=== PATIENT | female | born 2000 | race African-American/Black ===

== ENCOUNTER 2022-07-25 09:18 | Inpatient (IN) | payer OTHER ==
[2022-07-25] MEDS ORDERED: Penicillin G Potassium 5 MILL.UNITS VIAL ONE (09:37)
[2022-07-25] MEDS ORDERED: Tranexamic Acid 1,000 MG/10 ML VIAL IVP PRN (09:46)
[2022-07-25] MEDS ORDERED: Carboprost 250 MCG/ML AMP IM PRN (09:46)
[2022-07-25] MEDS ORDERED: Ondansetron PF 4 MG/2 ML Vial IVP PRN ×2 (09:46→16:06)
[2022-07-25] MEDS ORDERED: Lidocaine 1% (PF) 30 ML VIAL SC PRN (09:46)
[2022-07-25] MEDS ORDERED: hydrALAZINE 20 MG/ML VIAL SLOW IVP PRN ×2 (09:46→16:06)
[2022-07-25] MEDS ORDERED: Butorphanol Tartrate 1 MG/ML VIAL SLOW IVP PRN (09:46)
[2022-07-25] MEDS ORDERED: Promethazine HCl 25 MG/ML VIAL IM PRN (09:46)
[2022-07-25] MEDS ORDERED: Misoprostol 200 MCG TAB PR PRN (09:46)
[2022-07-25] MEDS ORDERED: Ibuprofen 800 MG TAB PO PRN (09:46)
[2022-07-25] MEDS ORDERED: Methylergonovine 0.2 MG/ML VIAL IM PRN (09:46)
[2022-07-25] MEDS ORDERED: Penicillin G 2.5 MILL.units 2.5 MILL.UNITS in Premix Bag 1 BAG IVPB SCH (10:00)
[2022-07-25] MEDS ORDERED: Lactated Ringer's 1,000 ML IV SCH (10:00)
[2022-07-25] MEDS ORDERED: NS w/ Oxytocin 30 units 500 ML IV SCH ×2 (10:00)
[2022-07-25] MEDS ORDERED: Penicillin G Potassium 5 MILL.UNITS in Sodium Chloride 0.9% 100 ML IVPB SCH (10:00)
[2022-07-25 10:20] LABS: Mean Corpuscular Hemoglobin 31.2 pg (27.0-33.0); Mean Corpuscular Volume 91.6 fl (81.6-98.3); Mean Platelet Volume 10.8 fl (7.4-10.4); Platelet Count 232 10x3/uL (150-450); RBC Distribution Width 13.3 % (11.5-14.5); Red Blood Cell (RBC) Count 4.17 10x6/uL (3.90-5.03); White Blood Cell (WBC) Count 8.9 10x3/uL (3.5-10.5)
[2022-07-25 11:12] LABS: Syphilis Antibody Nonreactive (Nonreactive); Syphilis Antibody Index 0.07 S/CO (<1.00 Non-Reactive)
[2022-07-25 11:13] LABS: HBSAg Index 0.14 S/CO (0-0.99); Hep B Surf Ag - L&D Non-Reactive S/CO (NonReactive)
[2022-07-25 12:24] VITALS: BMI 24.5
[2022-07-25] MEDS: NS w/ Oxytocin 30 units 500 ML IV SCH ×2 (14:55→16:20)
[2022-07-25] MEDS ORDERED: Milk Of Magnesia 30 ML UDCUP PO PRN (16:06)
[2022-07-25] MEDS ORDERED: Benzocaine-Menthol 82.5 ML CAN TOP PRN (16:06)
[2022-07-25] MEDS ORDERED: Bisacodyl 10 MG SUPP PR PRN (16:06)
[2022-07-25] MEDS ORDERED: diphenhydrAMINE 25 MG CAP PO PRN (16:06)
[2022-07-25] MEDS ORDERED: Boostrix 0.5 ML (Tdap) VIAL (>/=7 yrs of age) IM ONE (16:06)
[2022-07-25] MEDS: HYDROcodone/Acetaminophen 5/325 mg Tablet PO PRN (16:34)
[2022-07-25] MEDS: Ferrous Sulfate 325 MG TAB PO SCH (19:32)
[2022-07-26] MEDS: Ibuprofen 800 MG TAB PO SCH ×4 (05:08→21:27)
[2022-07-26] MEDS: Docusate 100 MG CAP PO SCH ×3 (05:34→21:28)
[2022-07-26] MEDS: Ferrous Sulfate 325 MG TAB PO SCH ×2 (07:47→17:09)
[2022-07-26] MEDS: Prenatal Vitamin 1 TAB PO SCH (09:31)
[2022-07-26] MEDS: HYDROcodone/Acetaminophen 5/325 mg Tablet PO PRN ×2 (12:44→21:27)
[2022-07-27] MEDS: Ibuprofen 800 MG TAB PO SCH ×2 (06:39→16:28)
[2022-07-27 08:04] VITALS: BP 115/66; TEMP 98.8
[2022-07-27] MEDS: Ferrous Sulfate 325 MG TAB PO SCH ×2 (08:43→17:08)
[2022-07-27] MEDS: Docusate 100 MG CAP PO SCH (09:31)
[2022-07-27] MEDS: Prenatal Vitamin 1 TAB PO SCH (09:32)
[2022-07-27] MEDS: HYDROcodone/Acetaminophen 5/325 mg Tablet PO PRN ×2 (09:32→18:44)
== END 2022-07-27 18:45 | disposition home or self-care (01) | DRG 807 ==
LOC: CSHLD 09:18 → CSHPP 19:00
PROVIDERS: ADMIT Family Medicine; ATTEND Family Medicine
PROC: 10E0XZZ Delivery of Products of Conception, External Approach (ICD-10-PCS; principal; 2022-07-25)
PROC: 10907ZC Drainage of Amniotic Fluid, Therapeutic from Products of Conception, Via Natural or Artificial Opening (ICD-10-PCS; 2022-07-25)
DX: O99.824 Streptococcus B carrier state complicating childbirth (principal); Z37.0 Single live birth; Z3A.39 39 weeks gestation of pregnancy
CPT/HCPCS: 85027; 86780; 86850; 86900; 86901; 87340; J2590

== ENCOUNTER 2024-01-21 11:51 | Day surgery (SDC) | payer OTHER ==
[2024-01-21] MEDS ORDERED: Lorazepam 2 MG/ML VIAL SLOW IVP PRN (12:44)
[2024-01-21] MEDS ORDERED: Calcium Gluc 4.6 MEQ/10 ML (100 MG/ML) SLOW IVP PRN (12:44)
[2024-01-21] MEDS ORDERED: hydrALAZINE 20 MG/ML VIAL SLOW IVP PRN (12:44)
[2024-01-21 13:41] LABS: #Basophils 0.03 10x3/uL (0.0-0.2); #Eosinophils 0.03 10x3/uL (0.0-0.5); #Monocytes 0.35 10x3/uL (0.0-1.1); #Neutrophils 4.84 10x3/uL (1.5-8.4); %Basophils 0.4 % (0.0-2.0); %Eosinophils 0.4 % (0.0-6.0); %Lymphocytes 23.1 % (18.0-47.0); %Monocytes 5.1 % (0.0-10.0); %Neutrophils 70.7 % (40.0-75.0); Hematocrit 27.2 % (34.9-44.5); Hemoglobin 8.3 g/dL (12.0-15.5); Mean Corpuscular HGB CONC 30.5 g/dL (32.0-36.0); Mean Corpuscular Hemoglobin 24.8 pg (27.0-33.0); Mean Corpuscular Volume 81.2 fL (81.6-98.3); Mean Platelet Volume 9.7 fL (7.4-10.4); Platelet Count 258 10x3/uL (150-450); RBC Distribution Width 15.9 % (11.5-14.5); Red Blood Cell (RBC) Count 3.35 10x6/uL (3.90-5.03); White Blood Cell (WBC) Count 6.9 10x3/uL (3.5-10.5)
[2024-01-21 13:53] LABS: PTT 24.2 sec (22.0-33.0); Prothrombin Time 10.5 sec (9.5-12.1)
[2024-01-21 13:54] LABS: ALT (SGPT) 14 U/L (8-55); AST (SGOT) 23 U/L (5-34); Albumin 2.6 g/dL (3.5-5.0); Alkaline Phosphatase 162 U/L (40-110); Anion Gap 12 mmol/L (10-20); BUN (Urea Nitrogen) Less than 4 mg/dL (7.0-18.7); Bilirubin, Total 0.5 mg/dL (0.2-1.2); Calc. Creatinine Clearance 0 mL/min (70-130); Calcium 8.8 mg/dL (7.8-10.44); Carbon Dioxide 22 mmol/L (22-29); Chloride 108 mmol/L (98-107); Estimated GFR 130; Globulin 3.9 g/dL (2.4-3.5); Glucose 82 mg/dL (70-105); Potassium 3.5 mmol/L (3.5-5.1); Protein, Total 6.5 g/dL (6.0-8.3); Sodium 138 mmol/L (136-145)
[2024-01-21 14:04] VITALS: BMI 21.7
[2024-01-21 14:12] LABS: Bilirubin Neg (Negative); Blood, Urine 50 (Negative); Clarity Clear (Clear); Glucose, Urine (Dipstick) Normal (Negative); Ketone, Urine Negative (Negative); Leukocyte 100 (Negative); Nitrite Negative (Negative); Protein, Urine (Dipstick) Negative (Neg-Trace); Specific Gravity, Urine 1.005 (1.005-1.030); Urobilinogen Normal mg/dL (Less than 2)
[2024-01-21 14:14] LABS: Bacteria/HPF 1+ HPF (None Seen); CAUTI Indications for Culture Pregnancy; RBC/HPF 0-3 HPF (0-3)
[2024-01-21 14:15] LABS: Urine Culture Reflex No No; Urine Culture Reflex Yes Yes
[2024-01-21 14:26] LABS: Creatinine, Urine 86.61 mg/dL (47-110)
== END 2024-01-21 14:40 | disposition home or self-care (01) ==
LOC: CSHLD/OP 11:51
PROVIDERS: ATTEND Family Medicine
DX: O99.891 Other specified diseases and conditions complicating pregnancy (principal); R03.0 Elevated blood-pressure reading, without diagnosis of hypertension; Z3A.38 38 weeks gestation of pregnancy
CPT/HCPCS: 80053; 81001; 82570; 84156; 85025; 85610; 85730; 87086; 99283